=== PATIENT | female | born 1980 | race Caucasian/White ===

== ENCOUNTER → 2020-11-28 | Outpatient (CLI) | payer MEDICAID ==
--- NOTE | 2020-11-28 13:07 | MR ---
EXAMINATION TYPE: MR knee RT wo con DATE OF EXAM: 11/28/2020 COMPARISON: None HISTORY: Right knee pain TECHNIQUE: Multiplanar, multisequence images of the knee is performed without IV contrast. FINDINGS: MEDIAL MENISCUS: Anterior and posterior horns are intact without tear. LATERAL MENISCUS: Anterior and posterior horns are intact without tear. CRUCIATE LIGAMENTS: The anterior and posterior cruciate ligaments are intact and unremarkable. COLLATERAL LIGAMENTS: The medial collateral ligament and lateral collateral ligament complex are inta ct and unremarkable. EXTENSOR MECHANISM: Visualized quadriceps and patellar tendons are intact. EFFUSION: No significant suprapatellar joint effusion. POPLITEAL CYST: No popliteal/powell cyst. TRICOMPARTMENT SPACES: Intact CARTILAGE: Intact BONE MARROW SIGNAL: Focal area of bone marrow edema involving the lateral tibial plateau. Linear area s of decreased signal on T1-weighted data set may reflect subcortical fracture. Correlate clinically. OTHER: No additional significant abnormality is appreciated. IMPRESSION: 1.Focal area of bone marrow edema involving the lateral tibial plateau. Linear areas of decreased sig nal on T1-weighted data set may reflect subcortical fracture. Correlate clinically.
== END | disposition home or self-care (01) ==
LOC: RADMRIMAIN 11:44
PROVIDERS: ATTEND Orthopaedic Surgery
DX: R60.0 Localized edema (principal)

== ENCOUNTER → 2021-04-05 | Outpatient (CLI) | payer MEDICAID ==
[2021-04-05 14:31] LABS: African American GFR (CKD) 125.6 (60.0-200.0); Non-African American GFR(CKD) 108.4 (60.0-200.0)
[2021-04-05 15:24] LABS: HCT 37.9 % (37.2-46.3); HGB 12.6 g/dL (12.0-15.0); MCH 31.2 pg (27.0-32.0); MCHC 33.2 g/dL (32.0-37.0); MCV 93.8 fL (80.0-97.0); Mean Platelet Volume 13.8 fL (9.5-12.2); Platelet Count 157 X 10*3/uL (140-440); RBC 4.04 X 10*6/uL (4.10-5.20); RDW 12.1 % (11.5-14.5); WBC 6.47 X 10*3/uL (4.50-10.00)
[2021-04-05 18:33] LABS: Hepatitis B Surface Antigen Nonreactive (Nonreactive)
[2021-04-06 15:53] LABS: HIV 2 AB Non-Reactive (Non-Reactive); HIV AB P24 Non-Reactive (Non-Reactive); HIV P24 AG Non-Reactive (Non-Reactive)
== END | disposition home or self-care (01) ==
LOC: LABWHC1 09:24
PROVIDERS: ATTEND Obstetrics & Gynecology
DX: Z34.81 Encounter for supervision of other normal pregnancy, first trimester (principal); Z3A.00 Weeks of gestation of pregnancy not specified
CPT/HCPCS: 36415; 82565; 82947; 85027; 86762; 86780; 86850; 86900; 86901; 87340; 87390

== ENCOUNTER → 2021-04-20 | Outpatient (CLI) | payer MEDICAID ==
--- NOTE | 2021-04-20 16:29 | US ---
EXAMINATION TYPE: US OB >= 14 wk fetus DATE OF EXAM: 04/20/2021 COMPARISON: None CLINICAL HISTORY: 40-year-old female Z36.89 CONFIRM GESTATIONAL AGE TECHNIQUE: Transabdominal (TA) FINDINGS: GESTATIONAL AGE / DATING Physician Established: Not yet established Dates by LMP: (15 weeks/3 days) EDC: 10-09-21 Dates by First Scan: No previous this is first scan Dates by Current Scan: (16 weeks/1 days) EDC: 10-04-21 SURVEY IUP: Single PLACENTA: Anterior PREVIA: Low Lying SAMUEL: 11.1 cm CERVICAL LENGTH (transabdominal: norm > 3.0cm): 4.6 cm BIOMETRY PRESENTATION: Breech BPD: 3.3 cm 16 weeks / 2 days HC: 12.2 cm 16 weeks / 1 days AC: 9.9 cm 16 weeks / 0 days FL: 1.9 cm 15 weeks / 4 days ESTIMATED WEIGHT IN GRAMS: 136 grams ESTIMATED WEIGHT IN LBS/OZ: 0 lbs. 5 oz. WEIGHT PERCENTAGE BASED ON ESTABLISHED DATES: 68.9% HC/AC: 1.2 FL/AC: 19.1 HEART RATE: 148 bpm RHYTHM: Normal IMPRESSION: 1. Single live intrauterine with estimated gestational age of 15 weeks 3 days by LMP. Prior ultrasound biometry is larger but concordant (16 weeks 1 day) placing the child at the 69th percenti le for weight. 2. SAMUEL low normal at 11.1 cm. 3. Low-lying anterior placenta measuring approximately 2 cm from the internal cervical os. Reassessed at follow-up. No michelle placenta previa seen. 4. Complete survey recommended at 18-20 weeks.
== END | disposition home or self-care (01) ==
LOC: RADUSWWP 12:07
PROVIDERS: ATTEND Obstetrics & Gynecology
DX: Z36.89 Encounter for other specified antenatal screening (principal); Z3A.15 15 weeks gestation of pregnancy
CPT/HCPCS: 76805

== ENCOUNTER → 2021-07-13 | Outpatient (CLI) | payer MEDICAID ==
--- NOTE | 2021-07-13 10:25 | US ---
EXAMINATION TYPE: US OB >= 14 wk fetus DATE OF EXAM: 07/13/2021 COMPARISON: Prior ultrasound April 20, 2021 CLINICAL HISTORY: [id number] Growth scan TECHNIQUE: Transabdominal (TA) GESTATIONAL AGE / DATING Physician Established: (27 weeks/3 days) EDC: 10/09/2021 Dates by Current Scan: (28 weeks/0 days) EDC: 10/05/2021 Beta HCG (if available): Not available at this time SURVEY IUP: Single PLACENTA: Anterior PREVIA: No Previa SAMUEL: 14.3 cm Normal CERVICAL LENGTH (transabdominal: norm > 3.0cm): 3.2 cm BIOMETRY PRESENTATION: Vertex BPD: 6.8 cm 27 weeks / 3 days HC: 26.0 cm 28 weeks / 2 days AC: 23.2 cm 27 weeks / 4 days FL: 5.4 cm 28 weeks / 4 days ESTIMATED WEIGHT IN GRAMS: 1150 grams ESTIMATED WEIGHT IN LBS/OZ: 2 lbs. 9 oz. WEIGHT PERCENTAGE BASED ON ESTABLISHED DATES: 58% HC/AC: 1.1 Normal FL/AC: 23 Normal HEART RATE: 150 bpm RHYTHM: Normal Single live intrauterine gestation redemonstrated. No thinning of the cervix. Normal cephalad present ation noted. No placenta previa. Estimated amniotic fluid index within normal limits. biometry measurements congruent and within normal limits with satisfactory interval growth. IMPRESSION: As above.
[2021-07-13 15:28] LABS: HCT 33.4 % (37.2-46.3); HGB 10.6 g/dL (12.0-15.0); MCH 30.5 pg (27.0-32.0); MCHC 31.7 g/dL (32.0-37.0); Mean Platelet Volume 12.8 fL (9.5-12.2); NRBC Per 100 WBC 0 /100 WBCS (0.0-0.0); Platelet Count 201 X 10*3/uL (140-440); RBC 3.48 X 10*6/uL (4.10-5.20); RDW 12.5 % (11.5-14.5); WBC 9.37 X 10*3/uL (4.50-10.00)
== END | disposition home or self-care (01) ==
LOC: RADUSWWP 09:27
PROVIDERS: ATTEND Obstetrics & Gynecology
DX: O09.523 Supervision of elderly multigravida, third trimester (principal); Z3A.28 28 weeks gestation of pregnancy
CPT/HCPCS: 76805; 82950; 85027

== ENCOUNTER → 2021-07-25 | Outpatient (CLI) | payer MEDICAID ==
[2021-07-25 12:14] LABS: Glucose 3 Hour, Gest 96 mg/dL
== END | disposition home or self-care (01) ==
LOC: LABWHC1 07:23
PROVIDERS: ATTEND Obstetrics & Gynecology
DX: O99.810 Abnormal glucose complicating pregnancy (principal); Z3A.00 Weeks of gestation of pregnancy not specified
CPT/HCPCS: 36415; 82951; 82952

== ENCOUNTER 2021-08-16 11:44 | Outpatient (CLI) | payer MEDICAID | END 2021-08-16 12:21 | disposition home or self-care (01) | LOC: FBPOP 11:44 | PROVIDERS: ATTEND Obstetrics & Gynecology | DX: O09.523 Supervision of elderly multigravida, third trimester (principal); Z3A.32 32 weeks gestation of pregnancy | CPT/HCPCS: 59025 ==

== ENCOUNTER → 2021-08-16 | Outpatient (CLI) | payer MEDICAID ==
--- NOTE | 2021-08-16 09:26 | US ---
EXAMINATION TYPE: US OB BPP wo non-stress DATE OF EXAM: 08/16/2021 COMPARISON: NONE CLINICAL HISTORY: O09.523 SUPERVISION OF ELDERLY MULTIGRAVIDA, THIRD. EXAM PERFORMED: Transabdominal (TA) BPP PARAMETERS: PRESENTATION: Vertex LIE: Longitudinal?? HEART RATE: 146 bpm RHYTHM: Normal SAMUEL: 14.1 DIAPHRAGM IMAGED: yes BPP SCORIN. Breathin (1 episode of breathing of 30 second duration in 30 minutes of scanning time) 2. Movement: 2 (at least 3 discrete body movements in 30 minutes) 3. Tone: 2 (1 episode of active flexion/extension of limb) 4. SAMUEL: 2 (SAMUEL index > 5cm) TOTAL SCORE: 8 / 8
--- NOTE | 2021-08-16 09:29 | US ---
EXAMINATION TYPE: US OB >= 14 wk fetus DATE OF EXAM: 08/16/2021 COMPARISON: None CLINICAL HISTORY: SUPERVISION OF ELDERLY MULTIGRAVIDA, THIRD TRIMESTER TECHNIQUE: GESTATIONAL AGE / DATING Physician Established: (32 weeks/2 days) EDC: 10/09/2021 Dates by LMP: (32 weeks/2 days) EDC: 10/09/2021 Dates by First Scan: (33 weeks/0 days) EDC: 10/04/2021 Dates by Current Scan: (32 weeks/5 days) EDC: 10/06/2021 SURVEY IUP: Single PLACENTA: Anterior PREVIA: No Previa SAMUEL: 13.8 cm Normal CERVICAL LENGTH (transabdominal: norm > 3.0cm): 3.5 cm BIOMETRY PRESENTATION: Vertex LIE: Longitudinal BPD: 8.0 cm 32 weeks / 1 days HC: 29.8 cm 33 weeks / 0 days AC: 29.5 cm 33 weeks / 4 days FL: 6.5 cm 33 weeks / 2 days ESTIMATED WEIGHT IN GRAMS: 2158 grams ESTIMATED WEIGHT IN LBS/OZ: 4 lbs. 12 oz. WEIGHT PERCENTAGE BASED ON ESTABLISHED DATES: 72% HC/AC: 1.01 Normal FL/AC: 21.89 Normal HEART RATE: 147 bpm RHYTHM: Normal IMPRESSION: Single viable intrauterine .
== END | disposition home or self-care (01) ==
LOC: RADUSWWP 08:11
PROVIDERS: ATTEND Obstetrics & Gynecology
DX: O09.523 Supervision of elderly multigravida, third trimester (principal); Z3A.33 33 weeks gestation of pregnancy
CPT/HCPCS: 76805; 76819

== ENCOUNTER 2021-08-22 10:13 | Outpatient (CLI) | payer MEDICAID ==
[2021-08-22] MEDS ORDERED: BETAMET ACET-BETAMETH SOD PHOS 6 MG/ML MDV IM SCH (11:00)
[2021-08-22] MEDS ORDERED: LACTATED RINGERS 1,000 ML IV SCH (11:15)
[2021-08-22] MEDS ORDERED: LACTATED RINGERS 1,000 ML IV ONE (12:28)
[2021-08-22 13:50] VITALS: BP 123/81; PULSE 78; RESP 18; TEMP 97.6
== END 2021-08-22 13:30 | disposition home or self-care (01) ==
LOC: FBPOP 10:13
PROVIDERS: ATTEND Obstetrics & Gynecology
DX: O09.523 Supervision of elderly multigravida, third trimester (principal); Z3A.33 33 weeks gestation of pregnancy
CPT/HCPCS: 59025; 99214; 96360; 96361; 96372; 82731; J0702

== ENCOUNTER → 2021-08-22 | Outpatient (CLI) | payer MEDICAID ==
--- NOTE | 2021-08-22 18:22 | US ---
EXAMINATION TYPE: US OB BPP wo non-stress DATE OF EXAM: 08/22/2021 COMPARISON: NONE CLINICAL HISTORY: 40 year old female, O09.523 SUPERVISION OF ELDERLY MULTIGRAVIDA, 3RD T. EXAM PERFORMED: Transabdominal (TA) BPP PARAMETERS: PRESENTATION: Vertex HEART RATE: 142 bpm RHYTHM: Normal SAMUEL: 11 DIAPHRAGM IMAGED: yes BPP SCORIN. Breathin (1 episode of breathing of 30 second duration in 30 minutes of scanning time) 2. Movement: 2 (at least 3 discrete body movements in 30 minutes) 3. Tone: 2 (1 episode of active flexion/extension of limb) 4. SAMUEL: 2 (SAMUEL index > 5cm) IMPRESSION: TOTAL SCORE: 8 / 8
== END | disposition home or self-care (01) ==
LOC: RADUSWWP 09:27
PROVIDERS: ATTEND Obstetrics & Gynecology
DX: O09.523 Supervision of elderly multigravida, third trimester (principal)
CPT/HCPCS: 76819

== ENCOUNTER 2021-08-23 10:51 | Outpatient (CLI) | payer MEDICAID ==
[2021-08-23] MEDS ORDERED: BETAMET ACET-BETAMETH SOD PHOS 6 MG/ML MDV IM ONE (12:00)
--- NOTE | 2021-08-24 13:23 | P.MSEPDOC ---
Presenting Problems - Arrival Data Date of Arrival on Unit: 08/23/21 Time of Arrival on Unit: 10:51 Mode of Transport: Ambulatory - Complaint OB-Reason for Admission/Chief Complaint: Celestone Injection Comment: pt presents to triage for 2nd dose of celestone Medical History - Information : 5 Para: 2 Term: 1 : 1 Abortions: Spontaneous or Elective: 4 Number of Living Children: 2 - Gestational Age Gestational Age by NATALIA (wks/days): 33 Weeks and 2 Days - History Complications: Prior Review of Systems - Review of Systems Constitutional: No problems Breast: No problems ENT: No problems Cardiovascular: No problems Respiratory: No problems Gastrointestinal: No problems Genitourinary: No problems Musculoskeletal: No problems Neurological: No problems Skin: No problems Physician Notification - Notification Comment Comment: celestone given and pt will follow up with Dr. Marie on 08/29/21, pt will be up on triage on saturday for another nst as ordered Maternal Triage Index - Maternal Triage Index Presenting for scheduled procedure w/no complaint: Yes - Scheduled/Requesting Priority 5 Scheduled/Requesting Priority 5: Yes Criteria Met for Priority 5: pt here for 2nd dose of celestone Disposition - Disposition OB Disposition: Triage, Discharge to home, Written follow up instructions reviewed Discharge Date: 08/23/21 Discharge Time: 11:14 I agree with the RN Medical Screening Exam: Yes Case reviewed; plan agreed upon as documented in EMR&OBIX.: Yes Diagnosis: LABOR WITHOUT DELIVERY, THIRD TRIMESTER
== END 2021-08-23 11:14 | disposition home or self-care (01) ==
LOC: FBPOP 10:51
PROVIDERS: ATTEND Obstetrics & Gynecology
DX: O60.03 Preterm labor without delivery, third trimester (principal); Z3A.33 33 weeks gestation of pregnancy
CPT/HCPCS: 99213; 96372; J0702

== ENCOUNTER 2021-08-25 08:19 | Outpatient (CLI) | payer MEDICAID ==
[2021-08-25 09:02] VITALS: BP 127/72; PULSE 90; RESP 16; TEMP 97.9
--- NOTE | 2021-08-26 02:33 | P.MSEPDOC ---
Presenting Problems - Arrival Data Date of Arrival on Unit: 08/25/21 Time of Arrival on Unit: 08:20 Mode of Transport: Ambulatory - Complaint OB-Reason for Admission/Chief Complaint: NST Medical History - Information : 5 Para: 4 Number of Living Children: 1 - Gestational Age Gestational Age by NATALIA (wks/days): 33 Weeks and 4 Days Review of Systems - Review of Systems Constitutional: No problems Breast: No problems ENT: No problems Cardiovascular: No problems Respiratory: No problems Gastrointestinal: No problems Genitourinary: No problems Musculoskeletal: No problems Neurological: No problems Skin: No problems Vital Signs - Temperature Temperature: 97.9 F Temperature Source: Temporal Artery Scan - Pulse Pulse Oximetery Pulse Rate: 90 Pulse Assessment Method: Pulse Oximetry - Respirations Respiratory Rate: 16 Oxygen Delivery Method: Room Air O2 Sat by Pulse Oximetry: 100 - Blood Pressure Right Arm Sitting Blood Pressure: 127/72 Blood Pressure Mean: 90 Blood Pressure Source: Automatic Cuff Medical Screen Scoring - Assessment - Baby A Baseline FHR: 155 Heart Rate - NICHD Category: Category I (Normal) NST: Reactive Physician Notification - Physician Notified Physician Notified Date: 08/25/21 Physician Notified Time: 08:55 Physician: Gayla Marie Order Received: Yes - Notification Comment Comment: DC Maternal Triage Index - Maternal Triage Index Presenting for scheduled procedure w/no complaint: Yes - Scheduled/Requesting Priority 5 Scheduled/Requesting Priority 5: No Disposition - Disposition OB Disposition: Discharge to home Discharge Date: 08/25/21 Discharge Time: 08:59 I agree with the RN Medical Screening Exam: Yes Case reviewed; plan agreed upon as documented in EMR&OBIX.: Yes Diagnosis: SUPERVISION OF ELDERLY MULTIGRAVIDA, THIRD TRIMESTER
== END 2021-08-25 08:59 | disposition home or self-care (01) ==
LOC: FBPOP 08:19
PROVIDERS: ATTEND Obstetrics & Gynecology
DX: O09.523 Supervision of elderly multigravida, third trimester (principal); Z3A.33 33 weeks gestation of pregnancy
CPT/HCPCS: 59025

== ENCOUNTER 2021-08-29 11:51 | Outpatient (CLI) | payer MEDICAID ==
[2021-08-29 12:41] VITALS: BP 127/77; PULSE 100; RESP 18; TEMP 98.3
--- NOTE | 2021-08-29 18:04 | P.MSEPDOC ---
Presenting Problems - Arrival Data Date of Arrival on Unit: 08/29/21 Time of Arrival on Unit: 11:50 Mode of Transport: Ambulatory - Complaint OB-Reason for Admission/Chief Complaint: NST Comment: with written order. Medical History - Information : 5 Para: 2 Term: 2 : 0 Abortions: Spontaneous or Elective: 2 Number of Living Children: 2 - Gestational Age Gestational Age by NATALIA (wks/days): 34 Weeks and 1 Days Review of Systems - Review of Systems Constitutional: No problems Breast: No problems ENT: No problems Cardiovascular: No problems Respiratory: No problems Gastrointestinal: No problems Genitourinary: No problems Musculoskeletal: No problems Neurological: No problems Skin: No problems Vital Signs - Temperature Temperature: 98.3 F Temperature Source: Temporal Artery Scan - Pulse Right Pulse Rate: 100 Pulse Assessment Method: Pulse Oximetry - Respirations Respiratory Rate: 18 Oxygen Delivery Method: Room Air O2 Sat by Pulse Oximetry: 98 - Blood Pressure Right Arm Blood Pressure: 127/77 Blood Pressure Mean: 93 Blood Pressure Source: Automatic Cuff Medical Screen Scoring - Uterine Contractions Frequency From (mins): 1 Frequency To (mins): 3 Duration From (seconds): 70 Duration To (seconds): 90 Intensity: Mild Resting: Soft to palpation - Assessment - Baby A Baseline FHR: 145 Heart Rate - NICHD Category: Category I (Normal) NST: Reactive Physician Notification - Physician Notified Physician Notified Date: 08/29/21 Physician Notified Time: 12:24 Physician: Gayla Marie New Order Received: Yes (d/c home with follow up instructions.) Maternal Triage Index - Maternal Triage Index Presenting for scheduled procedure w/no complaint: Yes - Stat/Priority 1 Provider Notified: Gayla Marie Provider Notified Time: 12:24 Criteria Met for Priority 1: Written orders for NST. Pt catherine, rating 1/10. Pt was seen in office this morning and had cervical exam. Pt 4cm. Clear for discharge per Dr. Marie at this time. If contractions continue/increase in intensity or s/s of labor return to triage. - Scheduled/Requesting Priority 5 Scheduled/Requesting Priority 5: No Disposition - Disposition OB Disposition: Discharge to home Discharge Date: 08/29/21 Discharge Time: 12:25 I agree with the RN Medical Screening Exam: Yes Case reviewed; plan agreed upon as documented in EMR&OBIX.: Yes Diagnosis: SUPERVISION OF ELDERLY MULTIGRAVIDA, THIRD TRIMESTER
== END 2021-08-29 12:25 | disposition home or self-care (01) ==
LOC: FBPOP 11:51
PROVIDERS: ATTEND Obstetrics & Gynecology
DX: O09.523 Supervision of elderly multigravida, third trimester (principal); Z3A.34 34 weeks gestation of pregnancy
CPT/HCPCS: 59025; 99213

== ENCOUNTER → 2021-08-29 | Outpatient (CLI) | payer MEDICAID ==
--- NOTE | 2021-08-29 09:56 | US ---
EXAMINATION TYPE: US OB BPP wo non-stress DATE OF EXAM: 08/29/2021 COMPARISON: NONE CLINICAL HISTORY: O09.523 SUPERVISION OF ELDERLY MULTIGRAVIDA, THIRD TRIMESTER. advanced maternal age , dilated to 3cm, on bed rest EXAM PERFORMED: Transabdominal (TA) BPP PARAMETERS: PRESENTATION: Vertex LIE: Longitudinal?? HEART RATE: 127 bpm RHYTHM: Normal SAMUEL: 12.7cm DIAPHRAGM IMAGED: yes BPP SCORIN. Breathin (1 episode of breathing of 30 second duration in 30 minutes of scanning time) 2. Movement: 2 (at least 1 discrete body movements in 30 minutes) 3. Tone: 2 (3 episodes of active flexion/extension of limb) 4. SAMUEL: 2 (SAMUEL index > 5cm) TOTAL SCORE: 8 / 8
== END | disposition home or self-care (01) ==
LOC: RADUSWWP 09:14
PROVIDERS: ATTEND Obstetrics & Gynecology
DX: O09.523 Supervision of elderly multigravida, third trimester (principal)
CPT/HCPCS: 76819

== ENCOUNTER 2021-09-01 11:06 | Outpatient (CLI) | payer MEDICAID ==
[2021-09-01 12:24] VITALS: PULSE 98; RESP 16; TEMP 97.2
--- NOTE | 2021-09-05 07:33 | P.MSEPDOC ---
Presenting Problems - Arrival Data Date of Arrival on Unit: 09/01/21 Time of Arrival on Unit: 11:06 Mode of Transport: Ambulatory - Complaint OB-Reason for Admission/Chief Complaint: NST Comment: Patient presents for a scheduled NST Medical History - Information : 5 Para: 2 Term: 2 : 0 Abortions: Spontaneous or Elective: 2 Number of Living Children: 2 - Gestational Age Gestational Age by NATALIA (wks/days): 34 Weeks and 4 Days - History Comment: Advanced Maternal age Review of Systems - Review of Systems Constitutional: No problems Breast: No problems ENT: No problems Cardiovascular: No problems Respiratory: No problems Gastrointestinal: No problems Genitourinary: No problems Musculoskeletal: No problems Neurological: No problems Skin: No problems Vital Signs - Temperature Temperature: 97.2 F Temperature Source: Temporal Artery Scan - Pulse Pulse Oximetery Pulse Rate: 98 Pulse Assessment Method: Pulse Oximetry - Respirations Respiratory Rate: 16 Oxygen Delivery Method: Room Air O2 Sat by Pulse Oximetry: 98 Medical Screen Scoring - Assessment - Baby A Baseline FHR: 145 Heart Rate - NICHD Category: Category I (Normal) NST: Reactive Physician Notification - Physician Notified Physician Notified Date: 09/01/21 Physician Notified Time: 12:07 Physician: Dr. Shar Dennison Order Received: Yes - Notification Comment Comment: Orders given to discharge patient home with instructions Maternal Triage Index - Maternal Triage Index Presenting for scheduled procedure w/no complaint: Yes - Scheduled/Requesting Priority 5 Scheduled/Requesting Priority 5: Yes Criteria Met for Priority 5: Patient presents for a Scheduled NST Disposition - Disposition OB Disposition: Discharge to home, Written follow up instructions reviewed Discharge Date: 09/01/21 Discharge Time: 12:07 I agree with the RN Medical Screening Exam: Yes Case reviewed; plan agreed upon as documented in EMR&OBIX.: Yes Diagnosis: SUPERVISION OF ELDERLY MULTIGRAVIDA, THIRD TRIMESTER
== END 2021-09-01 12:12 | disposition home or self-care (01) ==
LOC: FBPOP 11:06
PROVIDERS: ATTEND Obstetrics & Gynecology
DX: O09.523 Supervision of elderly multigravida, third trimester (principal); Z3A.34 34 weeks gestation of pregnancy
CPT/HCPCS: 59025; 99213

== ENCOUNTER 2021-09-05 10:27 | Outpatient (CLI) | payer MEDICAID ==
[2021-09-05 11:04] VITALS: BP 137/68; PULSE 84; RESP 18; TEMP 97.4
== END 2021-09-05 10:55 | disposition home or self-care (01) ==
LOC: FBPOP 10:27
PROVIDERS: ATTEND Obstetrics & Gynecology
DX: O09.523 Supervision of elderly multigravida, third trimester (principal); Z3A.35 35 weeks gestation of pregnancy
CPT/HCPCS: 59025

== ENCOUNTER → 2021-09-05 | Outpatient (CLI) | payer MEDICAID ==
--- NOTE | 2021-09-05 16:40 | US ---
EXAMINATION TYPE: US OB BPP wo non-stress DATE OF EXAM: 09/05/2021 COMPARISON: 08/29/2021 CLINICAL HISTORY: 40-year-old female O09.523 AMA. History of 2 prior C sections, ectopic , m iscarriage. . On bed rest. EXAM PERFORMED: Transabdominal (TA). Biophysical profile scoring performed by the rubber goods finisher during real-time scanning. BPP PARAMETERS: PRESENTATION: Vertex LIE: Longitudinal?? HEART RATE: 149 bpm RHYTHM: Normal SAMUEL: 11.7 (versus 12.7 cm, previously) DIAPHRAGM IMAGED: Yes BPP SCORIN. Breathin (1 episode of breathing of 30 second duration in 30 minutes of scanning time) 2. Movement: 2 (at least 3 discrete body movements in 30 minutes) 3. Tone: 2 (1 episode of active flexion/extension of limb) 4. SAMUEL: 2 (SAMUEL index > 5cm) IMPRESSION: TOTAL SCORE: 8 / 8
== END | disposition home or self-care (01) ==
LOC: RADUSWWP 09:36
PROVIDERS: ATTEND Obstetrics & Gynecology
DX: O09.523 Supervision of elderly multigravida, third trimester (principal); Z3A.00 Weeks of gestation of pregnancy not specified
CPT/HCPCS: 76819

== ENCOUNTER 2021-09-07 09:32 | Outpatient (CLI) | payer MEDICAID | END 2021-09-07 10:57 | disposition home or self-care (01) | LOC: FBPOP 09:32 | PROVIDERS: ATTEND Obstetrics & Gynecology | DX: O09.523 Supervision of elderly multigravida, third trimester (principal); Z3A.35 35 weeks gestation of pregnancy | CPT/HCPCS: 59025 ==

== ENCOUNTER 2021-09-11 12:30 | Outpatient (CLI) | payer MEDICAID ==
[2021-09-11 13:23] VITALS: BP 125/79; PULSE 77; RESP 14; TEMP 97.5
== END 2021-09-11 13:09 | disposition home or self-care (01) ==
LOC: FBPOP 12:30
PROVIDERS: ATTEND Obstetrics & Gynecology
DX: O09.523 Supervision of elderly multigravida, third trimester (principal); Z3A.36 36 weeks gestation of pregnancy
CPT/HCPCS: 59025

== ENCOUNTER 2021-09-11 17:05 | Inpatient (IN) | payer MEDICAID ==
[2021-09-11] MEDS ORDERED: LACTATED RINGERS 1,000 ML IV SCH (17:25)
[2021-09-11] MEDS ORDERED: CITRIC ACID-SODIUM CITRATE 15 ML CUP PO ONE (18:36)
[2021-09-11] MEDS ORDERED: LACTATED RINGERS 1,000 ML IV ONE (18:36)
[2021-09-11 18:44] LABS: Basophils % (A) 0 %; Eosinophils % (A) 0 %; HCT 33.8 % (34.0-46.0); HGB 11.4 gm/dL (11.4-16.0); Lymphocytes # (A) 1.8 k/uL (1.0-4.8); Lymphocytes % (A) 20 %; MCH 30.3 pg (25.0-35.0); MCHC 33.7 g/dL (31.0-37.0); MCV 89.9 fL (80.0-100.0); Mean Platelet Volume 11.6; Monocytes # (A) 0.3 k/uL (0-1.0); Monocytes % (A) 4 %; Neutrophils # (A) 6.8 k/uL (1.3-7.7); Neutrophils % (A) 75 %; Platelet Count 189 k/uL (150-450); RBC 3.76 m/uL (3.80-5.40); RDW 13.2 % (11.5-15.5)
--- NOTE | 2021-09-11 19:15 | P.HPOB ---
History of Present Illness H&P Date: 09/11/21 Chief Complaint: Active labor This is a 40-year-old female 5 para 2 with an estimated date of confinement of 10/09/2021, estimated gestational age of 36-0/7 weeks, who presents to labor and delivery with complaints of contractions that began about 3 PM today and became stronger and more regular on her arrival to the hospital. She was 4-1/2 cm on arrival which is the same and she was last week in the office however her contractions have become more regular every 2-3 minutes since arrival. She is not making cervical change but her contractions are strong and she is rating them at 8 out of 10. She has been getting twice weekly NSTs in the hospital due to advanced maternal age. Approximately 3 weeks ago she was showing regular contractions and was found to be dilated 2-1/2-3 cm. She did receive 2 doses of steroids at that time and has not had regular contractions since then up until now. She is scheduled for a repeat section at 37 weeks due to gestational hypertension that was just diagnosed within the last week. She denies any other symptoms of headaches or blurry vision. labs: GC/chlamydia-negative One hour Glucola-147, three-hour Glucola within normal limits HIV-nonreactive hepatitis B surface antigen-negative reactive Random glucose-99 Hemoglobin-12.6 Syphilis antibody-negative nonreactive Blood type-A+ Antibody screen-negative Obstetrical history: . History of 2 previous deliveries. Her first was a section emergently for failed induction. Her second was a section for elective repeat. Her first child weighed 9 lbs. 4 oz. at 40 weeks and her second child was 6 lbs. 3 oz. at 36-3/7 weeks. She does have a history of 1 miscarriage and 1 ectopic that was tr eated with methotrexate. Gynecologic history: No history of sexual transmitted diseases Social history: She is . She works as an RN at [employer]. Review of Systems Constitutional: Denies chills, Denies fever Eyes: denies blurred vision, denies pain Ears, nose, mouth and throat: Denies headache, Denies sore throat Cardiovascular: Denies chest pain, Denies shortness of breath Respiratory: Denies cough Gastrointestinal: Reports abdominal pain (Contractions) Genitourinary: Reports pelvic pain, Reports Musculoskeletal: Reports low back pain Integumentary: Denies pruritus, Denies rash Neurological: Denies numbness, Denies weakness Psychiatric: Denies anxiety, Denies depression Past Medical History Past Medical History: No Reported History History of Any Multi-Drug Resistant Organisms: None Reported Past Surgical History: Section (2) Past Anesthesia/Blood Transfusion Reactions: No Reported Reaction Past Psychological History: No Psychological Hx Reported Smoking Status: Never smoker Past Alcohol Use History: None Reported Past Drug Use History: None Reported - Past Family History Mother Family Medical History: Cancer, Diabetes Mellitus Medications and Allergies Home Medications Medication Instructions Recorded Confirmed Type Pnv No.95/Ferrous Fum/Folic AC 1 tab PO DAILY 08/16/21 09/11/21 History [ Multivitamin Tablet] RX: Aspirin 81 mg PO DAILY 08/16/21 09/11/21 History Allergies Allergy/AdvReac Type Severity Reaction Status Date / Time No Known Allergies Allergy Verified 09/07/21 09:46 Exam Osteopathic Statement: *. No significant issues noted on an osteopathic structural exam other than those noted in the History and Physical/Consult. Vital Signs Temp Pulse Pulse Resp BP Pulse Ox 09/11/21 18:45 97.9 F 96 18 133/74 09/11/21 18:31 97.4 F L 100 16 143/72 98 Intake and Output 09/11/21 09/11/21 09/11/21 06:59 14:59 22:59 Other: Weight 117.934 kg HEENT: Within normal limits Heart: Regular rate and rhythm Lungs: Clear to auscultation bilaterally Abdomen: Cervix: 4-1/2 cm/80%/-2 station. heart tones: Reactive, category 1 Contractions: Every 2 minutes Extremities: Negative Homans Results Result Diagrams: 09/11/21 17:42 Abnormal Lab Results - Last 24 Hours (Table) 09/11/21 Range/Units 17:42 RBC 3.76 L (3.80-5.40) m/uL Hct 33.8 L (34.0-46.0) % Assessment and Plan (1) 36 weeks gestation of Current Visit: Yes Status: Acute Code(s): Z3A.36 - 36 WEEKS GESTATION OF SNOMED Code(s): 28660248 (2) Previous delivery affecting Current Visit: Yes Status: Acute Code(s): O34.219 - MATERNAL CARE FOR UNSP TYPE SCAR FROM PREVIOUS DEL SNOMED Code(s): 490596644 Plan: Admission for repeat low transverse section due to active labor. I have discussed the risks, benefits, and alternative therapies for the above- mentioned procedure and for both sedation/anesthesia as well as necessary blood products administration, if indicated, as they pertain to this patient. The patient has indicated her understanding and acceptance of the risks and procedures discussed.
[2021-09-11] MEDS ORDERED: HYDROmorphone 0.5 MG/0.5 ML SYRINGE IVP PRN (20:22)
[2021-09-11] MEDS ORDERED: LANOLIN CREAM 5 GM TUBE TOPICAL PRN (20:22)
[2021-09-11] MEDS ORDERED: NALOXONE 0.4 MG/ML 1 ML VIAL IV PRN (20:22)
[2021-09-11] MEDS ORDERED: OXYTOCIN 30 UNITS/500 ML NS 30 UNIT in SALINE 1 500ML.BAG IV SCH (20:22)
[2021-09-11] MEDS ORDERED: diphenhydrAMINE 50 MG/ML 1 ML VIAL IVP PRN ×2 (20:22)
[2021-09-11] MEDS ORDERED: ZOLPIDEM 5 MG TAB PO PRN (20:22)
[2021-09-11] MEDS ORDERED: SIMETHICONE 80 MG CHEWABLE PO PRN (20:22)
[2021-09-11] MEDS ORDERED: diphenhydrAMINE 25 MG CAP PO PRN (20:22)
[2021-09-11] MEDS ORDERED: METOCLOPRAMIDE 5 MG/ML 2 ML VIAL IVP PRN (20:22)
[2021-09-11] MEDS ORDERED: ONDANSETRON 4 MG/2 ML VIAL IVP PRN (20:22)
[2021-09-11] MEDS ORDERED: diphenhydrAMINE 50 MG CAP PO PRN (20:22)
[2021-09-11] MEDS ORDERED: HYDROmorphone 1 MG/ML 1 ML SYRINGE IVP PRN (20:22)
--- NOTE | 2021-09-11 20:35 | P.OP ---
Date of Procedure: 09/11/21 Preoperative Diagnosis: 1. Intrauterine at 36-0/7 weeks. 2. Active labor. 3. Previous section. 4. Advance maternal age. Postoperative Diagnosis: Same Procedure(s) Performed: Repeat low transverse section Anesthesia: spinal (Duramorph) Surgeon: Gayla Marie Head Of Loss Prevention #1: Fariha Aleman Estimated Blood Loss (ml): 800 Pathology: other (Placenta) Condition: stable Disposition: floor Indications for Procedure: This is a 40-year-old female 5 para 2 with an estimated date of confinement of 10/09/2021, estimated gestational age of 36-0/7 weeks, who presented to labor and delivery with complaints of contractions that began approximately 3 PM today and became stronger and more regular. course was complicated by contractions at approximately 33 weeks. At that time she was noted to be dilated approximately 2-1/2-3 cm and was given 2 doses of Celestone. Since that time she has not had any regular contractions and has made some cervical change up to about 4-1/2 cm at her last check. She has been doing regular nonstress tests due to advanced maternal age. I have discussed the risks, benefits, and alternative therapies for the above- mentioned procedure and for both sedation/anesthesia as well as necessary blood products administration, if indicated, as they pertain to this patient. The patient has indicated her understanding and acceptance of the risks and procedures discussed. Operative Findings: A viable female infant is noted in the vertex presentation with scores of 7 at 1 minute and 8 at 5 minutes and weight of 6 lbs. 13 oz. Normal u terus tubes and ovaries are noted. Description of Procedure: The patient is taken to the operating room where she is placed in the dorsal supine position with leftward tilt after spinal Duramorph anesthesia is given. She is prepped and draped in the normal sterile fashion. Skin was tested and found to be adequately anesthetized. A Pfannenstiel skin incision was made with a scalpel. A second knife was used to carry the incision down to the underlying layer of fascia. The fascia was nicked in the midline with a scalpel and then extended laterally bilaterally with Johnson scissors. The anterior lip of the fascia was grasped with 2 Mabel clamps and then dissected off the underlying rectus muscle in the midline with Johnson scissors. The inferior aspect of the fascial incision was grasped with 2 Mabel clamps and dissected off the underlying rectus muscle and the midline with Johnson scissors. Next the peritoneum layer was tented up with 2 hemostats and then entered sharply with the scalpel. The incision is extended superiorly and inferiorly with Metzenbaum scissors. Next a DeLee retractor is placed. The vesicouterine peritoneum is entered sharply with Metzenbaum scissors and extended laterally bilaterally with Metzenbaum scissors and then the bladder flap is pushed inferiorly. The lower uterine segment is incised in transverse fashion with the scalpel and then bluntly entered with a hemostat. Clear fluid is noted. The incision was then extended laterally bilaterally with 2 fingers. Next the infant's head is delivered through the incision. Infant is this time is noted to be straight occiput anterior. The infant is rotated slightly and the posterior shoulder was delivered followed by the anterior shoulder. Nuchal cord times one was also red uced. Nose and mouth are bulb suctioned. The remainder of the is easily delivered and placed on mother's abdomen. Cord is clamped and cut. is taken to warmer by nursing staff. Uterine fundus is gently massaged and placenta is delivered manually. Uterus is exteriorized and cleared of all clots and debris. Uterine incision is closed with 0 Vicryl suture in a running locked fashion. A second layer of 0 Vicryl suture is used in a running fashion for hemostasis. Several interrupted stitches are placed along the right side of the incision for hemostasis. Several interrupted stitches of 3-0 Vicryl suture are placed just above the bladder flap for hemostasis. Clear urine is still noted at this time. Posterior cul-de-sac is suctioned of all clots and debris. Uterus is returned to the abdomen. Surgicel powder is placed over the lower uterine segment of the uterus. Incision is noted to be hemostatic. Peritoneal layer is closed with 0 Vicryl suture in a running fashion. Muscle layer is reapproximated with 0 Vicryl suture in interrupted fashion. Fascia layer is then closed with 0 PDS suture with 2 sutures meeting in the midline and the knots buried in either side and in the midline. The subcutaneous tissue was then closed with 2-0 Vicryl suture. Skin layer was then closed with miles. All sponge and needle counts are correct. The patient is taken to recovery room in stable condition.
[2021-09-11] MEDS: LACTATED RINGERS 1,000 ML IV SCH (21:00)
[2021-09-11] MEDS: ACETAMINOPHEN TAB 500 MG TAB PO SCH (23:42)
[2021-09-11] MEDS: SENNOSIDES-DOCUSATE SODIUM 1 EACH TAB PO SCH (23:43)
[2021-09-12] MEDS: ACETAMINOPHEN IV (For NPO) 1,000 MG in EMPTY BAG 1 BAG IVPB SCH ×2 (00:10→07:13)
[2021-09-12] MEDS: IBUPROFEN 600 MG TAB PO SCH ×4 (03:23→23:59)
[2021-09-12] MEDS: ACETAMINOPHEN TAB 500 MG TAB PO SCH ×3 (06:51→17:44)
[2021-09-12] MEDS: LACTATED RINGERS 1,000 ML IV SCH (06:59)
[2021-09-12] MEDS: KETOROLAC 15 MG/ML 1 ML VIAL IVP SCH ×2 (07:14→15:27)
[2021-09-12 07:46] LABS: Basophils % (A) 0 %; Eosinophils % (A) 0 %; HCT 29.8 % (34.0-46.0); HGB 10.1 gm/dL (11.4-16.0); Lymphocytes # (A) 1.3 k/uL (1.0-4.8); Lymphocytes % (A) 12 %; MCH 30.5 pg (25.0-35.0); MCHC 33.8 g/dL (31.0-37.0); MCV 90.3 fL (80.0-100.0); Mean Platelet Volume 11.2; Monocytes # (A) 0.3 k/uL (0-1.0); Monocytes % (A) 3 %; Neutrophils # (A) 9.4 k/uL (1.3-7.7); Neutrophils % (A) 85 %; Platelet Count 143 k/uL (150-450); RBC 3.31 m/uL (3.80-5.40); RDW 13.3 % (11.5-15.5)
[2021-09-12] MEDS: PRENATAL VIT-IRON-FOLIC ACID 1 EACH TABLET PO SCH (08:10)
[2021-09-12] MEDS: SENNOSIDES-DOCUSATE SODIUM 1 EACH TAB PO SCH ×2 (08:11→23:58)
--- NOTE | 2021-09-12 08:22 | P.PNOBGPC ---
Subjective - Subjective Principal diagnosis: Status post repeat section postoperative day #1 Interval history: Patient is doing well. She is ambulating. She has urinated. He is not passing flatus or bowel movement yet. Her pain is fairly well controlled at this time. She is working on breast-feeding. Lochia has been minimal. Patient reports: Reports appetite normal, Reports voiding normally, Reports pain well controlled, Reports ambulating normally [place]: doing well Objective - Vital Signs Latest vital signs: Vital Signs Temp Pulse Pulse Resp BP Pulse Ox 09/12/21 04:00 97.7 F 72 19 122/74 98 09/12/21 00:00 97.8 F 75 15 128/75 97 09/11/21 21:45 70 15 116/59 09/11/21 21:05 67 15 119/59 100 09/11/21 20:50 97.0 F L 81 16 120/58 98 09/11/21 20:35 92 16 159/66 96 09/11/21 20:20 83 16 132/62 96 09/11/21 20:05 97.0 F L 84 96 16 130/60 96 09/11/21 18:45 97.9 F 96 18 133/74 09/11/21 18:31 97.4 F L 100 16 143/72 98 Intake and Output 09/11/21 09/12/21 09/12/21 22:59 06:59 14:59 Intake Total 960 480 Output Total 1649 350 Balance -689 130 Intake: Oral 960 480 Output: Urine 350 Uretheral (Rivas) 350 Estimated Blood Loss 820 Output, Quantitative 829 Blood Loss Other: Voiding Method Indwelling Catheter Indwelling Catheter # Voids 1 # Bowel Movements 400 Weight 117.934 kg - Exam Extremities: Present: normal. Absent: tenderness, edema Abdomen: Present: normal appearance, soft (Positive bowel sounds 4). Absent: distention, tenderness Incision: Present: normal, dry, intact. Absent: erythematous Uterus: Present: normal, firm. Absent: tenderness - Labs Labs: Abnormal Lab Results - Last 24 Hours (Table) 09/11/21 09/12/21 Range/Units 17:42 07:16 WBC 11.0 H (3.8-10.6) k/uL RBC 3.76 L 3.31 L (3.80-5.40) m/uL Hgb 10.1 L (11.4-16.0) gm/dL Hct 33.8 L 29.8 L (34.0-46.0) % Plt Count 143 L (150-450) k/uL Neutrophils # 9.4 H (1.3-7.7) k/uL Assessment and Plan Assessment: Status post repeat low transverse section postoperative day #1 (1) 36 weeks gestation of Current Visit: Yes Status: Acute Code(s): Z3A.36 - 36 WEEKS GESTATION OF SNOMED Code(s): 95060117 (2) Previous delivery affecting Current Visit: Yes Status: Acute Code(s): O34.219 - MATERNAL CARE FOR UNSP TYPE SCAR FROM PREVIOUS DEL SNOMED Code(s): 733742265 Plan: Continue with postoperative and care today. Will advance diet as tolerated after flatus. Patient is encouraged to ambulate.
--- NOTE | 2021-09-12 08:32 | P.PN ---
Progress Note - Text Progress Note Date: 09/12/21 Patient seen post op day #1 with a spinal anesthetic. Sitting up in bed and reports doing well. VAS 1-2/10. One episode of nausea that resolved with Zofran. Denies any back pain, paresthesias, headache, nausea or pruritis. Patient is afebrile. She is up and ambulating well. To be discharged to home tomorrow. Will follow up as indicated.
[2021-09-13 00:21] VITALS: RESP 16
[2021-09-13] MEDS: KETOROLAC 15 MG/ML 1 ML VIAL IVP SCH (00:22)
[2021-09-13] MEDS: ACETAMINOPHEN TAB 500 MG TAB PO SCH (01:58)
[2021-09-13] MEDS: SENNOSIDES-DOCUSATE SODIUM 1 EACH TAB PO SCH (08:39)
[2021-09-13] MEDS: IBUPROFEN 600 MG TAB PO SCH (08:39)
--- NOTE | 2021-09-13 08:42 | P.DS ---
Providers Date of admission: 09/11/21 18:40 Expected date of discharge: 09/13/21 Attending physician: Gayla Marie Primary care physician: Stated None - Discharge Diagnosis(es) (1) 36 weeks gestation of Current Visit: Yes Status: Acute (2) Previous delivery affecting Current Visit: Yes Status: Acute Hospital Course: This is a 40-year-old female 5 para 2 at 36-0/7 weeks who presented in active labor. She underwent a repeat low transverse section on 09/11/2021 and delivered a viable female with scores of 7 at 1 minute and 8 at 5 minutes and infant weight of 6 lbs. 13 oz. Postoperative and course have been uncomplicated. She is passing flatus and bowel movement. She is urinating without difficulty. She is breast-feeding. Lochia is decreasing. Her pain is fairly well controlled. Vital signs are stable. Abdomen is soft with positive bowel sounds 4. Incision is clean dry and intact with miles in place. Extremities show negative Homans. Impression is status post repeat low transverse section postoperative day #2. Plan is to discharge home later today as long as baby is able to be discharged. Miles will be removed and Steri-Strips placed prior to discharge. She is advised follow-up in the office in 1 week for a postoperative check and in 6 weeks for a check. She is advised to call the office if she has any further questions or concerns prior to her appointment time. She will be given a prescription for ibuprofen. Procedures: Repeat low transverse section on 09/11/2021 with delivery of a viable female Patient Condition at Discharge: Stable Plan - Discharge Summary Discharge Rx Participant: Yes New Discharge Prescriptions: New RX: Ibuprofen [Motrin] 600 mg PO Q6H #60 tab Continue RX: Pnv No.95/Ferrous Fum/Folic AC [ Multivitamin Tablet] 1 tab PO DAILY Discontinued RX: Aspirin 81 mg PO DAILY Discharge Medication List RX: Pnv No.95/Ferrous Fum/Folic AC [ Multivitamin Tablet] 1 tab PO DAILY 08/16/21 [History] RX: Ibuprofen [Motrin] 600 mg PO Q6H #60 tab 09/13/21 [Rx] Follow up Appointment(s)/Referral(s): Gayla Marie DO [Doctor of Osteopathic Medicine] - 1 Week Activity/Diet/Wound Care/Special Instructions: Instructions 1. Do not begin any exercise program for 3 weeks. 2. Do not resume sexual relations for 3 weeks or longer if uncomfortable. 3. You may take tub baths or showers at any time. 4. You may use tampons if desired after 3 weeks. 5. Keep the area of episiotomy (stitches) clean and dry. 6. If you are not nursing, wear a good fitting, supportive bra during the day and limit fluid intake for at least 1 week to prevent breast engorgement. 7. Call the office, [phone], within the next week to make appointment for your 6 week checkup if it has not already been made. 8. Report any of the following occurrences to the doctor promptly: a. Heavy, excessive bleeding b. Chills, fever c. Burning or frequency of urination d. Pain or redness and breasts if nursing e. Increasing pain or swelling in episiotomy (stitches). In addition to the above instructions, the following additional should be followed: 1. No heavy lifting or straining (exercising) until after 6 week checkup. 2. Keep abdominal incision clean and dry: You may wear a dressing if more comfortable. 3. Make office appointment for 10 days after going home or as instructed by her doctor. Discharge Disposition: HOME SELF-CARE
[2021-09-13 10:04] VITALS: BP 112/75; PULSE 95; TEMP 97.9
[2021-09-13] MEDS: PRENATAL VIT-IRON-FOLIC ACID 1 EACH TABLET PO SCH (11:23)
== END 2021-09-13 11:30 | disposition home or self-care (01) | DRG 786 ==
LOC: FBPOP 17:05 → 4FBP 18:40
PROVIDERS: ADMIT Obstetrics & Gynecology; ATTEND Obstetrics & Gynecology
PROC: 10D00Z1 Extraction of Products of Conception, Low, Open Approach (ICD-10-PCS; principal; 2021-09-11 19:17)
DX: O34.211 Maternal care for low transverse scar from previous cesarean delivery (principal); O60.14X0 Preterm labor third trimester with preterm delivery third trimester, not applicable or unspecified; Z37.0 Single live birth; Z3A.36 36 weeks gestation of pregnancy; Z79.82 Long term (current) use of aspirin; Z83.3 Family history of diabetes mellitus
CPT/HCPCS: 59025; 85025; 86850; 86900; 86901; 96360; 99213

== ENCOUNTER → 2022-12-18 | Outpatient (CLI) | payer MEDICAID ==
[2022-12-18 15:15] LABS: Basophils # (A) 0.02 X 10*3/uL (0.00-0.10); Basophils % (A) 0.3 %; Eosinophils # (A) 0.19 X 10*3/uL (0.04-0.35); Eosinophils % (A) 2.8 %; HCT 39.4 % (37.2-46.3); HGB 13.1 d/dL (12.0-15.0); Lymphocytes # (A) 1.96 X 10*3/uL (0.90-5.00); Lymphocytes % (A) 28.4 %; MCHC 33.2 d/dL (32.0-37.0); MCV 93.4 FL (80.0-97.0); Mean Platelet Volume 13.4 FL (9.5-12.2); Monocytes # (A) 0.36 X 10*3/uL (0.20-1.00); Monocytes % (A) 5.2 %; NRBC Per 100 WBC 0 X 10*3/uL (0.00-0.01); Neutrophils # (A) 4.35 X 10*3/uL (1.80-7.70); Platelet Count 155 X 10*3/uL (140-440); RBC 4.22 X 10*6/uL (4.10-5.20); RDW 12.7 % (11.5-14.5)
[2022-12-18 16:06] LABS: ALT 10 U/L (8-44); AST 12 U/L (13-35); Albumin 4.1 d/dL (3.8-4.9); Albumin/Globulin Ratio 1.78 Ratio (1.60-3.17); Alkaline Phosphatase 51 U/L (41-126); BUN/Creat Ratio 9.89 Ratio (12.00-20.00); Blood Urea Nitrogen 8.9 mg/dL (9.0-27.0); Calcium 8.7 mg/dL (8.7-10.3); Carbon Dioxide 22.5 mmol/L (21.6-31.8); Chloride 106 mmol/L (96-109); Chol/HDL Ratio 3.43 Ratio; Globulin 2.3 d/dL (1.6-3.3); Glucose 89 mg/dL (70-110); LDL Cholesterol,Calculated 95.7 mg/dL (0.0-131.0); Potassium 4.3 mmol/L (3.5-5.5); Sodium 139 mmol/L (135-145); Total Bilirubin 0.4 mg/dL (0.3-1.2); Total Protein 6.4 d/dL (6.2-8.2)
== END | disposition home or self-care (01) ==
LOC: LABWHC1 09:47
PROVIDERS: ATTEND Family Medicine
DX: Z00.00 Encounter for general adult medical examination without abnormal findings (principal)
CPT/HCPCS: 36415; 80053; 80061; 83036; 84443; 85025